=== PATIENT | female | born 1995 | race Two or more races ===

== ENCOUNTER → 2024-05-24 | Outpatient (CLI) | payer OTHER ==
[2024-05-24 13:16] LABS: HEMATOCRIT 34.5 % (36.0-47.0); HEMOGLOBIN 11.5 g/dl (12.0-15.5); MEAN CORPUSCULAR HEMOGLOBIN 29.2 pg (27.0-33.0); MEAN CORPUSCULAR HGB CONC 33.3 g/dl (32.0-36.5); MEAN CORPUSCULAR VOLUME 87.6 fl (80.0-96.0); PLATELET COUNT, AUTOMATED 248 10^3/uL (150-450); RED BLOOD COUNT 3.94 10^6/uL (4.00-5.40); WHITE BLOOD COUNT 8.6 10^3/uL (4.0-10.0)
[2024-05-24 13:20] LABS: GLUCOSE CHALLENGE TEST 1 HOUR 135 MG/DL (LESS THAN 140)
[2024-05-24 13:50] LABS: HIV 1&2 SCREEN NEGATIVE (NEGATIVE)
[2024-05-24 13:57] LABS: HEPATITIS C VIRUS ABY INDEX < 0.02 INDEX (<0.8)
[2024-05-24 15:08] LABS: GC DNA AMPLIFICATION NEGATIVE (NEGATIVE)
== END ==
LOC: M PLALAB 09:00
PROVIDERS: ATTEND Advanced Practice Midwife
DX: Z34.82 Encounter for supervision of other normal pregnancy, second trimester (principal)

== ENCOUNTER → 2024-06-08 | Outpatient (CLI) | payer OTHER | LOC: M LAB 07:33 | PROVIDERS: ATTEND Advanced Practice Midwife | DX: O99.810 Abnormal glucose complicating pregnancy (principal); Z3A.00 Weeks of gestation of pregnancy not specified ==

== ENCOUNTER → 2024-07-19 | Outpatient (REF) | payer OTHER | LOC: M PLALAB 13:40 | PROVIDERS: ATTEND Obstetrics & Gynecology | DX: Z36.89 Encounter for other specified antenatal screening (principal); Z3A.35 35 weeks gestation of pregnancy ==

== ENCOUNTER → 2024-07-19 | Outpatient (REF) | payer OTHER | LOC: M SFHCWAGY 17:02 | PROVIDERS: ATTEND Obstetrics & Gynecology | DX: Z36.89 Encounter for other specified antenatal screening (principal); Z3A.35 35 weeks gestation of pregnancy ==

== ENCOUNTER 2024-08-12 05:14 | Inpatient (IN) | payer OTHER ==
[~2024-08-12] VITALS: Ht 172.7 cm; Wt 89.2 kg
[~2024-08-12 05:14] MED LIST: ADDE1TAB14 PO; ADDE20CA3 PO; PRENTAB53 PO; ZOLO50TA PO
[2024-08-12] MEDS: LACTATED RINGER'S 1000 ML IV STA (05:21)
[2024-08-12] MEDS ORDERED: LR 1,000 ML IV SCH (05:25)
[2024-08-12 05:40] VITALS: BP 135/86
[2024-08-12 05:59] LABS: HEMATOCRIT 34.9 % (36.0-47.0); HEMOGLOBIN 11.6 g/dl (12.0-15.5); MEAN CORPUSCULAR HEMOGLOBIN 28.2 pg (27.0-33.0); MEAN CORPUSCULAR HGB CONC 33.2 g/dl (32.0-36.5); MEAN CORPUSCULAR VOLUME 84.9 fl (80.0-96.0); PLATELET COUNT, AUTOMATED 195 10^3/uL (150-450); RED BLOOD COUNT 4.11 10^6/uL (4.00-5.40); WHITE BLOOD COUNT 10.2 10^3/uL (4.0-10.0)
[2024-08-12 07:13] LABS: HEPATITIS C VIRUS ABY INDEX < 0.02 INDEX (<0.8)
[2024-08-12 07:24] VITALS: O2SAT 97
[2024-08-12] MEDS ORDERED: MORPHINE PRES-FREE INJ 10 MG/10 ML VIAL As Ordered ONE (07:26)
[2024-08-12] MEDS ORDERED: OXYTOCIN 30UNITS IN 0.9% NaCl 500ML IV BAG As Ordered ONE (07:26)
[2024-08-12] MEDS: ceFAZolin SOD 2 GM in IV 1 EA IV ONE (07:27)
[2024-08-12] MEDS ORDERED: ONDANSETRON 4MG 2ML VIAL As Ordered ONE (07:28)
[2024-08-12] MEDS: BICITRA 30ML SOLN UDC PO ONE (07:32)
[2024-08-12] MEDS ORDERED: ACETAMINOPHEN 1000MG 100ML IV BAG As Ordered ONE (07:53)
[2024-08-12] MEDS ORDERED: KETOROLAC 60MG 2ML VIAL As Ordered ONE (08:28)
[2024-08-12] MEDS ORDERED: ePHEDrine SULFATE 25 MG/5 ML(5MG/ML) SYRINGE As Ordered ONE (08:28)
[2024-08-12] MEDS ORDERED: PHENYLephrine 500MCG 5ML (100MCG/ML) SYRINGE As Ordered ONE (08:28)
[2024-08-12] MEDS ORDERED: ONDANSETRON 4MG 2ML VIAL IV PRN ×2 (09:10→09:15)
[2024-08-12] MEDS ORDERED: RHOGAM 300MCG (1500IU) INJ IM SCH (09:10)
[2024-08-12] MEDS ORDERED: oxyCODONE 5MG TAB PO PRN ×2 (09:10→09:15)
[2024-08-12] MEDS ORDERED: METOCLOPRAMIDE INJ 10MG/2ML VIAL As Ordered ONE (09:14)
[2024-08-12] MEDS: SLF 3 ML SYR IV SCH (09:15)
[2024-08-12] MEDS: LR 1,000 ML IV SCH (09:15)
[2024-08-12] MEDS ORDERED: fentaNYL 100 MCG/2 ML INJECTION IV PRN (09:15)
[2024-08-12] MEDS ORDERED: **NOTE PATIENT COMMENT** MISC XX SCH (09:15)
[2024-08-12] MEDS ORDERED: diphenhydrAMINE 50MG/ML VIAL IV PRN (09:15)
[2024-08-12] MEDS ORDERED: METOCLOPRAMIDE INJ 10MG/2ML VIAL IV PRN (09:15)
[2024-08-12] MEDS ORDERED: NALOXONE INJ 0.4MG/1ML VIAL IV PRN ×2 (09:15)
[2024-08-12] MEDS: OXYTOCIN DRIP 30 UNITS in IV 1 EA IV SCH (09:18)
[2024-08-12] MEDS: METOCLOPRAMIDE INJ 10MG/2ML VIAL IV PRN (09:18)
[2024-08-12 10:05] VITALS: TEMP 97
[2024-08-12 11:53] VITALS: BP 120/75; O2SAT 97
[2024-08-12] MEDS: PRENATAL VITAMINS CHEWABLE TABLET PO SCH (13:30)
[2024-08-12] MEDS: ACETAMINOPHEN 500 MG TAB PO SCH (13:31)
[2024-08-12] MEDS: KETOROLAC 30 MG/ML 1ML VIAL IV SCH (13:31)
[2024-08-12] MEDS: LR 500 ML IV ONE (15:51)
[2024-08-12 18:00] VITALS: BP 123/76; O2SAT 97
[2024-08-12 21:55] VITALS: BP 129/68; O2SAT 97
[2024-08-13 02:20] VITALS: BP 115/66; O2SAT 97
[2024-08-13 05:58] VITALS: BP 121/62; O2SAT 100
[2024-08-13 06:48] LABS: HEMATOCRIT 29.4 % (36.0-47.0); HEMOGLOBIN 9.8 g/dl (12.0-15.5); MEAN CORPUSCULAR HGB CONC 33.3 g/dl (32.0-36.5); PLATELET COUNT, AUTOMATED 179 10^3/uL (150-450); WHITE BLOOD COUNT 12.7 10^3/uL (4.0-10.0)
[2024-08-13 10:00] VITALS: BP 117/67; O2SAT 97
[2024-08-13] MEDS: DOCUSATE SODIUM 100MG CAPSULE PO PRN (10:17)
[2024-08-13] MEDS: IBUPROFEN 600MG TAB PO SCH (10:17)
[2024-08-13] MEDS ORDERED: ADDE25CA PO (10:23)
[2024-08-13] MEDS: AMPHETAMINE/DEXTROAMPHETAMINE 5 MG *ER* CAPSULE (ADDERALL XR) PO SCH (11:08)
[2024-08-13 14:00] VITALS: BP 126/74; O2SAT 99
[2024-08-13] MEDS: oxyCODONE 5MG TAB PO PRN (17:11)
[2024-08-13 18:00] VITALS: BP 130/87; O2SAT 97
[2024-08-13 21:45] VITALS: BP 121/74; O2SAT 97
[2024-08-14 01:45] VITALS: BP 111/63; O2SAT 97
[2024-08-14 05:51] VITALS: BP 110/57; O2SAT 95
[2024-08-14] MEDS ORDERED: COLA100C5 PO (07:07)
[2024-08-14] MEDS ORDERED: OXYC-517 PO (07:07)
[2024-08-14] MEDS ORDERED: IBUP-1022 PO (07:07)
[2024-08-14] MEDS ORDERED: ACET-683 PO (07:07)
[2024-08-14 08:20] VITALS: O2SAT 95
[2024-08-14] MEDS: MEASLES,MUMPS,RUBELLA VACCINE INJ (MMR-II) SC.IMMUN ONE (09:00)
[2024-08-14] MEDS: SIMETHICONE 80MG CHEW TAB PO PRN (09:56)
== END 2024-08-14 12:25 | disposition home or self-care (01) | DRG 788 ==
LOC: M LDI 05:14 → M OBS 10:30
PROVIDERS: ADMIT Obstetrics & Gynecology; ATTEND Obstetrics & Gynecology
PROC: 10D00Z1 Extraction of Products of Conception, Low, Open Approach (ICD-10-PCS; principal; 2024-08-12 07:30)
DX: O80 Encounter for full-term uncomplicated delivery (principal); Z37.0 Single live birth; Z3A.39 39 weeks gestation of pregnancy; Z87.59 Personal history of other complications of pregnancy, childbirth and the puerperium